=== PATIENT | male | born 1960 | race Caucasian/White ===

== ENCOUNTER 2018-11-28 18:15 | Emergency (ER) | payer OTHER ==
[2018-11-28 18:27] VITALS: BP 140/85
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
[2018-11-28] MEDS ORDERED: HYDROCOD/APAP 5/325 PREPACK#6 BTL TAKEHOME ONE (19:04)
== END 2018-11-28 19:20 | disposition home or self-care (01) ==
LOC: CED 18:15
DX: S42.022A Displaced fracture of shaft of left clavicle, initial encounter for closed fracture (principal); V28.0XXA Motorcycle driver injured in noncollision transport accident in nontraffic accident, initial encounter; Y92.410 Unspecified street and highway as the place of occurrence of the external cause; Y93.55 Activity, bike riding
CPT/HCPCS: 73000-PO; 99283-ER; A4565-ER